=== PATIENT | female | born 1990 | race Caucasian/White ===

== ENCOUNTER 2016-11-06 07:08 | Emergency (ER) | payer SELFPAY ==
[2016-11-06 07:45] VITALS: BMI 28.8
[2016-11-06] MEDS ORDERED: SODIUM CHLORIDE 0.9% 3 ML FLUSH FLUSH PRN (08:21)
[2016-11-06] MEDS ORDERED: MORPHINE 4 MG/ML INJECTION IV ONE ×3 (08:21→11:17)
[2016-11-06] MEDS ORDERED: DEXAMETHASONE 4 MG/ML VIAL IV ONE (08:21)
[2016-11-06] MEDS ORDERED: AMPICILLIN 1 GM in NS 100 ML IV ONE (08:22)
[2016-11-06] MEDS ORDERED: NS 1,000 ML IV ONE (08:25)
--- NOTE | 2016-11-06 08:25 | EDPRACDOC ---
- General Information Chief Complaint: Sore Throat Stated Complaint: EARACHE/ TOOTHACHE Time Seen by Provider: 11/06/16 08:16 Information Source: Patient Mode Of Arrival: Car Home Medications: Home Medications Clindamycin HCl [Cleocin HCl] 300 mg PO QID #40 capsule 11/06/16 Oxycodone HCl [Roxicodone] 5 mg PO Q4-6H PRN #20 tablet 11/06/16 Allergies/Adverse Reactions: Allergies Allergy/AdvReac Type Severity Reaction Status Date / Time No Known Allergies Allergy Verified 11/06/16 07:45 - History of Present Illness Onset: couple days HPI: PT PRESENTS WITH PROGRESSIVE LEFT SIDED NECK PAIN AND SWELLING WITH FEVER. SHE IS HAVING DIFFICULTY SPEAKING AND HAS SOME DEGREE OF TRISMUS. Sore Throat Symptoms: Reports: Pain, Muffled Voice, Hoarse Relevant History of: Reports: Other (PRIOR RIGHT SIDED PERITONSILLAR ABSCESS.) Oral Intake: Decreased Associated Signs and Symptoms: Reports: Fever, Chills ED Past Medical History - History Reviewed Yes Nurses notes reviewed and agree except as marked - Patient Medical History Psychological History: Denies: Depression Surgical History: Reports: Other (RIGHT SIDED PERTONSILLAR ABSCESS.) - Social Medical History Smoking Status: Heavy tobacco smoker (5 or more cigarettes/day or daily pipe/ cigar) Lives In: Home EDM Review of Systems - Review of Systems ROS Negative Except as Marked: Yes All systems reviewed and were negative except as marked Constitutional: Chills, Fever Ears: Pain (LEFT) Throat: Pain, Swelling Respiratory: negative: Shortness of Breath Cardiovascular: negative: Chest Pain - Physical Exam Constitutional: Alert, Distress Oriented to: Time, Person, Place Last recorded Vital Signs: Last Vital Signs Temp 100.2 F 11/06/16 07:35 Pulse 112 11/06/16 07:35 Resp 20 11/06/16 07:35 BP 142/55 L 11/06/16 07:35 Pulse Ox 97 11/06/16 07:35 Oxygen Pulse Oxygen Saturation 97 O2 Device Room Air Oxygen Flow Rate Fraction of Inspired Oxygen ( FIO2) - HEENT Head: negative: Deformity, Laceration Eye Exam: negative: Conjunctival Injection, Pale Conjunctiva Oropharynx: Red, Tonsillar Hypertrophy (LEFT GREATER THAN RIGHT.), Other (LARGE RIGHT SIDED SWELLING TO SOFT PALATE. POORLY VISUALIZED BY SOME DEGREE OF TRISMUS.). negative: Membranes Dry Nose: negative: Congestion, Discharge Neck: Lymphadenopathy - Respiratory/Cardiovascular Respiratory: Normal - CTA. negative: Accessory Muscle Use, Diminished, Tachypnea Cardiovascular: Tachycardia. negative: Bradycardia, Irregular - Musculoskeletal Extremities: Radial Pulse (PALPABLE) - Integumentary Skin: Hot, Dry - Neurologic Memory Impaired: Normal Motor Function: Normal Mood Description: Anxious Thought: Coherent Perception: Normal Other Exam Findings: PT HAS LIMITED ABILITY TO SPEAK FROM PAIN AND SOFT PALATE SWELLING. - Re-evaluation Re-evaluation 1 Re-evaluation Time: 10:[address] JEFFERS. HE WOULD LIKE THE PATIENT TO BE SEEN IN HIS OFFICE THIS AFTERNOON TO HAVE DRAINAGE. THE OFFICE WILL CALL THE ER TO SET UP A TIME TO BE SEEN. - Results 11/06/16 08:45 11/06/16 08:45 Decision Time to Discharge: 11:17 - Departure Yes I personally saw and evaluated the patient. Disposition: Home Condition: Stable Final Diagnosis: Peritonsillar abscess Instructions: Peritonsillar Abscess (ED) Education/Counseling Given To: Patient, Friend Education/Counseling Given Regarding: Diagnosis, Treatment, Prognosis, Follow Up Referrals: None,No Provider [Primary Care Provider] - One Week Luis A Jeffers DO [Staff Physician] - 11/06/16 2:00 pm Prescriptions: New Clindamycin HCl [Cleocin HCl] 300 mg PO QID #40 capsule Oxycodone HCl [Roxicodone] 5 mg PO Q4-6H PRN #20 tablet PRN Reason: Breakthrough Pain Additional Instructions: GO TO DR. JEFFERS'S OFFICE AT 2 PM TO BE SEEN FOR DRAINAGE OF YOUR PERITONSILLAR ABSCESS. DO NOT EAT OR DRINK ANYTHING BETWEEN THE TIME YOU LEAVE AND WHEN YOU SEE DR. JEFFERS. YOU MAY RINSE YOUR MOUTH WITH WATER.
[2016-11-06 08:56] LABS: AUTOMATED BASOPHIL 0.2 % (0-2); AUTOMATED EOSINOPHIL 0.1 % (0-5); AUTOMATED LYMPH 7.5 % (17-44); AUTOMATED NEUTROPHIL 84.2 % (45-76); MPV 8.5 fL (7.4-10.4)
[2016-11-06] MEDS ORDERED: Pharmacy Review for Metformin - IV Contrast Given SCH (09:00)
[2016-11-06 09:19] VITALS: TEMP 99.7
[2016-11-06 09:33] LABS: BLOOD UREA NITROGEN 12 MG/DL (7-17); CALCIUM 9.3 MG/DL (8.4-10.2); CALCULATED OSMOLALITY 266 MOs/Kg (270-290); CHLORIDE 104 mEq/L (98-107); GLUCOSE 96 mg/dL (70-99); SODIUM LEVEL 138 mEq/L (137-146); TOTAL PROTEIN 7.6 G/DL (6.3-8.2)
--- NOTE | 2016-11-06 10:16 | DIRPT ---
CLINICAL DATA: Left parapharyngeal swelling. Rule out abscess. EXAM: CT NECK WITH CONTRAST TECHNIQUE: Multidetector CT imaging of the neck was performed using the standard protocol following the bolus administration of intravenous contrast. CONTRAST: 80 mL Isovue 370 IV COMPARISON: CT neck 05/09/2016 FINDINGS: Pharynx and larynx: Asymmetric soft tissue swelling of the left tonsil. Fluid collection in the region of the left tonsil measures 20 x 20 mm. This extends caudally into the hypopharynx were there is additional fluid collection measuring 16 mm. These may be connected or separate. This may be a multilocular abscess involving the tonsil and hypopharynx. Soft tissue swelling continues into the left lateral hypo pharyngeal wall down to the piriform sinus. Findings consistent with infection. Edema is also noted in the soft palate and epiglottis. No abscess in the right tonsillar region. Previous study did reveal a right peritonsillar abscess. Salivary glands: Parotid gland normal bilaterally. No submandibular lesion. There is edema extending medial to the left submandibular gland due to pharyngeal edema. Thyroid: Negative Lymph nodes: Enlarged lymph nodes in the neck bilaterally which shows solid enhancement compatible with acute infection. Left level 2 node 11 mm. Posterior lymph node on the left 7.5 mm and posterior lymph node on the right 9.1 mm. 10 mm submandibular nodes on the left. Vascular: Carotid artery and jugular vein patent bilaterally. Limited intracranial: Negative Visualized orbits: Negative Mastoids and visualized paranasal sinuses: Mild mucosal edema in the base of the maxillary sinus bilaterally. This appears odontogenic. Extensive caries involving the posterior upper molars bilaterally left greater than right with lucency around the left upper molars due to periapical abscess. Skeleton: Negative cervical spine. 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 IMPRESSION: Peritonsillar abscess on the left extending into the hypopharynx. It is difficult to determine if this is multilocular or unilocular. There is extensive edema extending into the hypopharynx down to the left piriform sinus and laterally to the left submandibular gland. Reactive lymph nodes in the neck. Electronically Signed By: Bo Mcknight M.D. On: 11/06/2016 10:13
[2016-11-06 11:35] VITALS: BP 129/74; PULSE 100
[2016-11-06] MEDS ORDERED: SODIUM CHLORIDE 0.9% 3 ML FLUSH FLUSH SCH (18:00)
== END 2016-11-06 11:50 | disposition home or self-care (01) ==
LOC: ED 07:08
DX: J36 Peritonsillar abscess (principal)
CPT/HCPCS: 36415; 70491; 80053; 85025; 87040; 96361; 96365; 96375; 96376; 99284; A9698; J0290; J1100; J2270; J7030